=== PATIENT | male | born 1950 | race Caucasian/White ===

== ENCOUNTER → 2017-04-06 12:47 | Emergency (ER) | payer MEDICARE ==
[~2017-04-06 12:47] MED LIST: Insulin REGULAR(*) 1 UNITS UNIT IV PUSH ONE; Meclizine TAB* 12.5 MG PO ONE; NS 0.9% 1000 ML* 1,000 ML IV ONE
[2017-04-06 14:39] LABS: Albumin 4.3 g/dL (3.2-5.2); BUN/Creatinine Ratio 12.6 (8-20); Calcium 9.2 mg/dL (8.6-10.3); EGFR Non-African American 79.3 (>60); Globulin 2.8 g/dL (2-4); Potassium 4.1 mmol/L (3.5-5.0); Total Bilirubin 0.9 mg/dL (0.2-1.0); Total Protein 7.1 g/dL (6.4-8.9)
[2017-04-06 15:10] LABS: Hematocrit 44 % (42-52); Mean Corpuscular HGB Conc 34 g/dl (31-36); Mean Corpuscular Hemoglobin 30 pg (27-31); Mean Corpuscular Volume 88 fL (80-94); Mean Platelet Volume 9 um3 (7.4-10.4); Red Blood Count 4.99 10^6/ul (4.0-5.4); Red Cell Distribution Width 14 % (10.5-15); White Blood Count 7.9 10^3/ul (3.5-10.8)
--- NOTE | 2017-04-06 16:34 | RAD ---
INDICATION: Dizziness. COMPARISON: There are no prior studies available for comparison. TECHNIQUE: Contiguous axial sections of the brain were obtained from the skull base to the vertex without contrast. FINDINGS: The ventricles, cisterns and sulci are within normal limits. No significant focal abnormality or mass effect is seen. There is no evidence for hemorrhage. No significant focal osseous abnormality is seen. The visualized portion of the paranasal sinuses and mastoid air cells appear clear. IMPRESSION: NO EVIDENCE FOR GROSS ACUTE INFARCT, MASS EFFECT OR HEMORRHAGE.
[2017-04-06 17:45] LABS: Troponin I 0.01 ng/mL (<0.04)
--- NOTE | 2017-04-06 18:11 | ED ---
Jeff Hilton Aidan, scribed for Luis Carlos Quiroz MD on 04/06/17 at 1742 . Dizziness - HPI Summary HPI Summary: 66 y/o male presents to the ED with a complaint of acute, rrloeuom-yf-ozwyjt episodes of dizziness that began today. His first episode occurred when he woke up and leaned over to grab something. He had two other episodes [employer] that occurred when he was bending over. The dizziness is described as seeing the room spin. Additionally, he had an acute, moderate episode of bilateral upper extremity numbness today. Pt denies any nausea, vomiting, sore throat, CP, or palpitations. Hx of 4 fused vertebrae. - History Of Current Complaint Chief Complaint: EDDizziness Stated Complaint: DIZZINESS Time Seen by Provider: 04/06/17 15:27 Hx Obtained From: Patient Last Known Well Date: 04/05/17 Onset/Duration: Resolved - Sx began when the patient woke up (see HPI) he had 3 episodes total Timing: Minutes Severity Initially: Moderate Severity Currently: Mild Character: Room Spinning Aggravating Factor(s): Other - bending over causes his episodes of dizziness Alleviating Factor(s): Other - unknown Associated Signs And Symptoms: Positive: Other: - episode of bilateral upper extremity numbness - Allergies/Home Medications Allergies/Adverse Reactions: Allergies Allergy/AdvReac Type Severity Reaction Status Date / Time Clarithromycin Allergy Severe Anaphylatic Verified 03/25/14 13:04 [From Biaxin XL] Shock Home Medications: Home Medications Ergocalciferol CAP* [Drisdol CAP*] 50,000 unit PO MONTHLY 04/06/17 [History Confirmed 04/06/17] Fluticasone-Salmeterol 250-50* [Advair Diskus 250-50*] 1 puff INH BID 04/06/17 [ History Confirmed 04/06/17] glipiZIDE TAB.XL* [Glucotrol XL*] 5 mg PO DAILY 04/06/17 [History Confirmed ] PMH/Surg Hx/FS Hx/Imm Hx Endocrine/Hematology History: Reports: Hx Diabetes, Hx Thyroid Disease, Other Endocrine/Hematological Disorders - hypoactive thyroid (d/t suppression by lithium) Cardiovascular History: Reports: Other Cardiovascular Problems/Disorders - cariac cath x2 most recent 2009 Denies: Hx Hypertension, Hx Pacemaker/ICD, Hx Peripheral Vascular Disease Respiratory History: Reports: Hx Sleep Apnea Denies: Hx Asthma, Hx Chronic Obstructive Pulmonary Disease (COPD) GI History: Denies: Hx Ulcer History: Reports: Other Problems/Disorders - prostatectomy d/t prostate CA Denies: Hx Renal Disease Musculoskeletal History: Reports: Hx Arthritis, Hx Back Problems, Other Musculoskeletal History - fused vertebrae Sensory History: Reports: Hx Contacts or Glasses Denies: Hx Hearing Aid Opthamlomology History: Reports: Hx Contacts or Glasses Neurological History: Reports: Hx Headaches, Other Neuro Impairments/Disorders - spinal stenosis (C3,4,5,6 fused) Denies: Hx Seizures, Hx Transient Ischemic Attacks (TIA) Psychiatric History: Reports: Hx Anxiety, Hx Bipolar Disorder - well controlled with [place]/lexipro Denies: Hx Depression, Hx Panic Disorder - Cancer History Cancer Type, Location and Year: PROSTATE - PROSTECTOMY Hx Chemotherapy: No Hx Radiation Therapy: No - Surgical History Surgery Procedure, Year, and Place: Diskectomy, C6 vertebrectomy and fusion C5- C7 (2006) C4-C7 fusion-strut graft-(METAL IMPLANT IN CSP) decompression (2008) Radical prostatectomy for cancer (2007) Arthroscopic surgery left knee (2004) Trigger fingersurgery left index (2001) Left big toe remove damaged joint and fusion (2001) Nasal polyps removed. deviated septum fixed (2000) Hemorrhoidectomy (1989) Appendectomy (1975), CARDIAC ANGIO - NO STENTS Hx Anesthesia Reactions: No Infectious Disease History: No Infectious Disease History: Denies: Hx Clostridium Difficile, Hx Hepatitis, Hx Human Immunodeficiency Virus (HIV), Hx of Known/Suspected MRSA, Hx Shingles, Hx Tuberculosis, Hx Known/ Suspected VRE, Hx Known/Suspected VRSA, History Other Infectious Disease, Traveled Outside the [place] in Last 30 Days - Family History Known Family History: Positive: Hypertension - Social History Occupation: Retired Lives: With Family Alcohol Use: None Substance Use Type: Reports: None Smoking Status (MU): Never Smoked Tobacco Review of Systems Constitutional: Negative Eyes: Negative ENT: Negative Cardiovascular: Negative Respiratory: Negative Gastrointestinal: Negative Genitourinary: Negative Musculoskeletal: Negative Skin: Negative Neurological: Other - dizziness Positive: Numbness - episode of bilateral upper extremity numbness. Negative: Headache, Weakness, Paresthesia, Syncope, Slurred Speech Psychological: Normal All Other Systems Reviewed And Are Negative: Yes Physical Exam - Summary Physical Exam Summary: VITAL SIGNS: Reviewed. GENERAL: Patient is a well-developed and nourished (MALE OR FEMALE) who is lying comfortable in the stretcher. Patient is not in any acute respiratory distress. HEAD AND FACE: No signs of trauma. No ecchymosis, hematomas or skull depressions. No sinus tenderness. EYES: PERRLA, EOMI x 2, No injected conjunctiva, no nystagmus. EARS: Hearing grossly intact. Ear canals and tympanic membranes are within normal limits. MOUTH: Oropharynx within normal limits. NECK: Supple, trachea is midline, no adenopathy, no JVD, no carotid bruit, no c- spine tenderness, neck with full ROM. CHEST: Symmetric, no tenderness at palpation LUNGS: Clear to auscultation bilaterally. No wheezing or crackles. CVS: Regular rate and rhythm, S1 and S2 present, no murmurs or gallops appreciated. ABDOMEN: Soft, non-tender. No signs of distention. No rebound no guarding, and no masses palpated. Bowel sounds are normal. EXTREMITIES: FROM in all major joints, no edema, no cyanosis or clubbing. NEURO: Alert and oriented x 3. No acute neurological deficits. Speech is normal and follows commands. SKIN: Dry and warm Triage Information Reviewed: Yes Vital Signs On Initial Exam: Initial Vitals Temp Pulse Resp BP Pulse Ox 97.3 F 72 17 194/88 100 04/06/17 12:51 04/06/17 12:51 04/06/17 12:51 04/06/17 12:51 04/06/17 12:51 Vital Signs Reviewed: Yes - Harrison Coma Scale Coma Scale Total: 15 Diagnostics - Vital Signs Vital Signs Temp Pulse Resp BP Pulse Ox 04/06/17 15:26 97.7 F 71 16 151/87 99 04/06/17 15:24 76 100 04/06/17 15:22 151/87 04/06/17 13:55 97.8 F 63 16 166/65 100 04/06/17 12:51 97.3 F 72 17 194/88 100 - Laboratory Lab Results: Lab Results 04/06/17 04/06/17 Range/Units 14:11 14:44 WBC 7.9 (3.5-10.8) 10^3/ul RBC 4.99 (4.0-5.4) 10^6/ul Hgb 15.0 (14.0-18.0) g/dl Hct 44 (42-52) % MCV 88 (80-94) fL MCH 30 (27-31) pg MCHC 34 (31-36) g/dl RDW 14 (10.5-15) % Plt Count 167 (150-450) 10^3/ul MPV 9 (7.4-10.4) um3 Neut % (Auto) 70.6 (38-83) % Lymph % (Auto) 19.4 L (25-47) % [place] % (Auto) 5.7 (1-9) % Eos % (Auto) 3.5 (0-6) % Baso % (Auto) 0.8 (0-2) % Absolute Neuts (auto) 5.5 (1.5-7.7) 10^3/ul Absolute Lymphs (auto) 1.5 (1.0-4.8) 10^3/ul Absolute Monos (auto) 0.4 (0-0.8) 10^3/ul Absolute Eos (auto) 0.3 (0-0.6) 10^3/ul Absolute Basos (auto) 0.1 (0-0.2) 10^3/ul Absolute Nucleated RBC 0 10^3/ul Nucleated RBC % 0.1 Sodium 132 L (133-145) mmol/L Potassium 4.1 (3.5-5.0) mmol/L Chloride 100 L (101-111) mmol/L Carbon Dioxide 24 (22-32) mmol/L Anion Gap 8 (2-11) mmol/L BUN 12 (6-24) mg/dL Creatinine 0.95 (0.67-1.17) mg/dL Est GFR ( Amer) 102.0 (>60) Est GFR (Non-Af Amer) 79.3 (>60) BUN/Creatinine Ratio 12.6 (8-20) Glucose 234 H (70-100) mg/dL Calcium 9.2 (8.6-10.3) mg/dL Total Bilirubin 0.90 (0.2-1.0) mg/dL AST 52 H (13-39) U/L ALT 60 H (7-52) U/L Alkaline Phosphatase 60 (34-104) U/L Troponin I Pending Total Protein 7.1 (6.4-8.9) g/dL Albumin 4.3 (3.2-5.2) g/dL Globulin 2.8 (2-4) g/dL Albumin/Globulin Ratio 1.5 (1-3) Result Diagrams: 04/06/17 14:44 04/06/17 14:11 Lab Statement: Any lab studies that have been ordered have been reviewed, and results considered in the medical decision making process. - CT BRAIN CT CT Interpretation: No Acute Changes - IMPRESSION: NO EVIDENCE FOR GROSS ACUTE INFARCT, MASS EFFECT OR HEMORRHAGE. CT Interpretation Completed By: Radiologist Dizzy Course/Dx - Course Course Of Treatment: 66 y/o male presents to the ED with a complaint of acute, qizqmltp-eu-[id number] episodes of dizziness that began today. His first episode occurred when he woke up and leaned over to grab something. He had two other episodes [employer] that occurred when he was bending over. The dizziness is described as seeing the room spin. Additionally, he had an acute, moderate episode of bilateral upper extremity numbness today. Pt denies any nausea, vomiting, sore throat, CP, or palpitations. Hx of 4 fused vertebrae. . In the ED course an IV access was obtained. Patient was placed in a monitoring analyst. Patient was started with IV fluids. Labs within normal limits except for NA 132, Glucose 234, and increased LFTs. Troponin #1: EKG shows a NSR at w/o ST elevations. CXR impression: No acute pathology. Head CT impression: Negative for an acute intracranial pathology. In the ED course he was given Antivert. He reports improvement. He was ambulated and has a good steady walk w/o ataxia. I believe his symptoms are secondary to BPV. He will be discharged home with F/U of PMD. He will be given a prescription for Antivert. I discussed all the findings and test results with the patient. Patient was instructed to return to the emergency room immediately if any of the symptoms return or worsens. Patient understands and agrees. Plan of care was discussed with the patient and patient understands and agrees with the plan of care. All questions were answered at patient satisfaction. There were no further complaints or concerns. Patient is alert and oriented x 3. Patient vital signs are stable. Patient is to follow up with primary care physician in the next 2 to 3 days. Patient understands and agrees. - Diagnoses Differential Diagnosis/HQI/PQRI: CVA, Meniere's Disease, Seizure, Transient Ischemic Attack Provider Diagnoses: Vertigo Discharge - Discharge Plan Condition: Stable Disposition: HOME Prescriptions: Meclizine TAB* [Antivert 12.5 TAB*] 25 mg PO TID PRN #30 tab PRN Reason: Vertigo Patient Education Materials: Vertigo (ED) Referrals: Prashant Gabriel MD [Primary Care Provider] - The documentation as recorded by the Jeff naranjo Aidan accurately reflects the service I personally performed and the decisions made by Richie marin Walter, MD.
[2017-04-06 19:14] VITALS: BP 166/74
== END | disposition home or self-care (01) ==
LOC: ED 12:47
DX: R42 Dizziness and giddiness (principal)
CPT/HCPCS: 36415; 70450; 80053; 84484; 85025; A9270-GY

== ENCOUNTER 2017-05-17 11:57 | Emergency (ER) | payer MEDICARE ==
[2017-05-17 12:11] VITALS: BP 144/68
[2017-05-17] MEDS ORDERED: Famotidine TAB* 20 MG PO ONE (13:04)
[2017-05-17] MEDS ORDERED: diPHENhydraMINE PO* 50 MG PO ONE (13:04)
[2017-05-17] MEDS ORDERED: methylPREDNISolone 125 MG* 2 ML VIAL IM ONE (13:05)
[2017-05-17] MEDS ORDERED: Cephalexin CAP* 500 MG PO ONE (13:05)
--- NOTE | 2017-05-17 13:11 | UC ---
Skin Complaint HPI - HPI Summary HPI Summary: 67 male presents with complaints of redness, swelling and tenderness to left cheek and left forearm that began yesterday and worsened today upon waking. Patient states 1 week ago he was stung by a bee twice in the same areas, left forearm and left cheek. States he did not have any signs or symptoms of allergic reaction such as these after the bee sting. He did take Benadryl at the time of sting. Also took one benadryl last night. Patient has not had any medication today. No new meds, foods or soaps. Swelling has been increasing over the past couple of hours, states its pruritic, tender and warm. Denies drainage. Denies difficulty breathing, swollen tongue and chest pain. No trouble swallowing. No other complaints. PMHx DM, HTN. - History of Current Complaint Chief Complaint: UCAllergicReaction Time Seen by Provider: 05/17/17 12:46 Stated Complaint: BEE STINGS Hx Obtained From: Patient Onset/Duration: Sudden Onset, Lasting Hours, Still Present, Worse Since Skin Exposure Onset/Duration: Hours Ago - late last night, worsening this morning Timing: Constant Onset Severity: Worse Since: - last night Current Severity: Severe Pain Intensity: 4 Pain Scale Used: 0-10 Numeric Location: Face - left cheek, Other - left forearm, anterior Character: Swelling, Pruritus, Pain, Redness Aggravating: Nothing Alleviating: Nothing Associated Signs & Symptoms: Positive: Negative Related History: Possible Reaction to: Insect - bee - Allergy/Home Medications Allergies/Adverse Reactions: Allergies Allergy/AdvReac Type Severity Reaction Status Date / Time Clarithromycin Allergy Severe Anaphylatic Verified 03/25/14 13:04 [From Biaxin XL] Shock Review of Systems Constitutional: Negative Skin: Rash Respiratory: Negative Cardiovascular: Negative Gastrointestinal: Negative Musculoskeletal: Negative All Other Systems Reviewed And Are Negative: Yes PMH/Surg Hx/FS Hx/Imm Hx Endocrine History: Diabetes Cardiovascular History: Cardiac Disease, Hypertension - Surgical History Surgical History: Yes Surgery Procedure, Year, and Place: Diskectomy, C6 vertebrectomy and fusion C5- C7 (2006) C4-C7 fusion-strut graft-(METAL IMPLANT IN CSP) decompression (2008) Radical prostatectomy for cancer (2007) Arthroscopic surgery left knee (2004) Trigger fingersurgery left index (2001) Left big toe remove damaged joint and fusion (2001) Nasal polyps removed. deviated septum fixed (2000) Hemorrhoidectomy (1989) Appendectomy (1975), CARDIAC ANGIO - NO STENTS - Family History Known Family History: Positive: Hypertension - Social History Alcohol Use: None Substance Use Type: None Smoking Status (MU): Never Smoked Tobacco - Immunization History Most Recent Tetanus Shot: fall 2011 Physical Exam Triage Information Reviewed: Yes Appearance: Well-Appearing, No Pain Distress, Well-Nourished, Obese Vital Signs: Initial Vital Signs Temp 97.4 F 05/17/17 12:08 Pulse 67 05/17/17 12:08 Resp 18 05/17/17 12:08 BP 144/68 05/17/17 12:08 Pulse Ox 99 05/17/17 12:08 Vital Signs Reviewed: Yes Eyes: Positive: Conjunctiva Clear ENT: Positive: Normal ENT inspection, Hearing grossly normal, Pharynx normal - no swelling of pharynx or tongue noted, TMs normal. Negative: Trismus, Muffled/ hoarse voice Neck: Positive: Supple, Nontender, No Lymphadenopathy, Other: Respiratory: Positive: Chest non-tender, Lungs clear, Normal breath sounds, No respiratory distress, No accessory muscle use Cardiovascular: Positive: RRR, No Murmur, Pulses Normal Abdomen Description: Positive: Nontender, Soft Bowel Sounds: Positive: Present Musculoskeletal: Positive: Strength Intact, ROM Intact Neurological: Positive: Alert, Muscle Tone Normal Skin: Positive: rashes - erythema, edema, warmth, tenderness to left anterior forearm and left cheek spreading into jawline, significant swelling. non blanchable in areas, appears to be allergic reaction versus cellulitis/ both. no drainge, no FB no obvious bites/stings. rest of skin exam normal. no raised areas. no abscess Course/Dx - Course Course Of Treatment: given IM steroid, oral benadryl, pepcid and keflex. will continue same regimen at home. patient's condition did not worsen while in ED. no concern for for worsening condition or anaphylaxis at this time. local allergic reaction is odd as the sting was 1 week ago and symptoms began last night into this morning. aware of worsening signs and symptoms to watch out for. follow up. no additional imaging or labs appeared to be required at this time. Instructed to keep a close eye and check sugars frequently while taking steroid. also to have follow up appointment with PCP to also have check. discontinue after 3 days if symptoms improve and sugars are uncontrolled. - Differential Diagnoses - Skin Complaint Differential Diagnoses: Allergic Reaction, Angioedema, Cellulitis, Contact Dermatitis, Local Allergic Reaction, Urticaria, Other - Diagnoses Provider Diagnoses: local allergic reaction, cellulitis Discharge - Discharge Plan Condition: Stable Disposition: HOME Prescriptions: Cephalexin CAP* [Keflex CAP*] 500 mg PO TID #29 cap predniSONE TAB* [Deltasone TAB*] 20 mg PO DAILY #4 tab Patient Education Materials: Cellulitis (ED), General Allergic Reaction (ED) Referrals: Prashant Gabriel MD [Primary Care Provider] - Additional Instructions: Take prescribed medication as directed. Prednisone start tomorrow. take in the morning. you may take 2 days supply and if you have relief you may stop it. However if symptoms are persistent and sugars are in normal range you may take the full dose (5 day supply) given to you. Take antibiotic Keflex three times daily for atleast 7 days. If symptoms have completely resolved after 7 days you may discontinue if not, continue entire 10 day dose. Take Benadryl at bedtime 1 pill for the next 5 days. Apply cool compresses. Follow up with PCP. If symptoms worsen or do not improve, or new symptoms develop please seek medical attention immediately.
== END 2017-05-17 13:27 | disposition home or self-care (01) ==
LOC: UCEAST 11:57
DX: T63.441A Toxic effect of venom of bees, accidental (unintentional), initial encounter (principal); T78.40XA Allergy, unspecified, initial encounter; L03.90 Cellulitis, unspecified; Y92.9 Unspecified place or not applicable
CPT/HCPCS: 96372; 99212; A9270-GY; G0463; J2930

== ENCOUNTER 2019-06-26 08:28 | Day surgery (SDC) | payer MEDICARE ==
[~2019-06-26 08:28] MED LIST changes: +Acetaminophen TAB* 325 MG PO PRN; +Buffered Lidocaine 1% SYRIN* 1 ML/SYRINGE INTRADERM ONE; -Insulin REGULAR(*) 1 UNITS UNIT IV PUSH ONE; -Meclizine TAB* 12.5 MG PO ONE; -NS 0.9% 1000 ML* 1,000 ML IV ONE
[2019-06-26] MEDS ORDERED: fentaNYL* 50 MCG/ML 2 ML VIAL (100 MCG VIAL) ONE (09:45)
[2019-06-26] MEDS ORDERED: Midazolam* 1 MG/ML 2 ML VIAL (2 MG) ONE (09:45)
[2019-06-26 10:55] VITALS: BP 148/66
[2019-06-26] MEDS ORDERED: Phenylephrine OPHTH SOL 2.5%* 2 ML ONE (11:12)
[2019-06-26] MEDS ORDERED: Lidocaine 1% MPF ** 5 ML VIAL ONE (11:12)
[2019-06-26] MEDS ORDERED: Tropicamide 1% OPTH.SOL* BTL ONE (11:12)
[2019-06-26] MEDS ORDERED: Neomycin/Polymy/Dex OPHTH.OIN* 3.5 GM ONE (11:12)
[2019-06-26] MEDS ORDERED: Tetracaine 0.5% OPTH.SOL 4 ML* 1 DROP BTL ONE (11:12)
[2019-06-26] MEDS ORDERED: Cyclopentolate 1% OPTH.SOL* 2 ML BTL ONE (11:12)
[2019-06-26] MEDS ORDERED: Ketorolac 0.5% OPHTH (NF) 0.5 % 5 ML BTL ONE (11:12)
--- NOTE | 2019-06-26 11:26 | OP ---
OPERATIVE REPORT: DATE OF OPERATION: 06/26/19 [facility] DATE OF : 50 SURGEON: Dr. Timothy Ortega. TAKE OUT WAITER/WAITRESS: None. ANESTHESIA: Topical with intravenous sedation. PRE-OP DIAGNOSIS: Cataract with glaucoma, left eye. POST-OP DIAGNOSIS: Cataract with glaucoma, left eye. OPERATIVE PROCEDURE: Phacoemulsification and cataract extraction with posterior chamber intraocular lens implant and iStent implant, left eye. COMPLICATIONS: None. BLOOD LOSS: None. OPERATIVE FINDINGS: The patient was brought to the operating room and given intravenous sedation. A drop of tetracaine was placed in his left eye. The patient was prepped and draped in the usual sterile fashion for ophthalmic surgery and attention was directed to the left eye where a speculum was placed. A paracentesis was created at the 5 o'clock position and 0.1 cc of 1% preservative- free lidocaine was injected into the anterior chamber followed by DisCoVisc. The eye was digitally stabilized while a 2.75 mm keratome was used to create a triplanar clear corneal incision at the 3 o'clock position. A continuous curvilinear capsulorrhexis was created with a cystotome and Utrata forceps. BSS on a cannula was used to hydrodissect the lens from the capsule. Phacoemulsification was performed in a rmfayn-cey-ukwssic technique to create 4 fragments, which were removed. Residual cortical material was removed with irrigation and aspiration. The capsular bag was polished. DisCoVisc was used to inflate the capsular bag. An [id number] 18.5 diopter lens was inserted into the capsular bag. Supplemental DisCoVisc was placed into the anterior chamber and onto the surface of the cornea. The patient's head was rotated away from the surgeon and the microscope was rotated towards the surgeon. A gonioprism was placed on the surface of the eye. An iStent on its plastic shaper was placed into the anterior chamber. Under visualization, the iStent was placed into the nasal trabecular meshwork. The plastic shaper and the prism were removed. The patient's head and microscope were returned to a neutral position. Irrigation and aspiration were performed to remove viscoelastic from the eye. BSS on a cannula was used to hydrate the corneal stroma and seal the wound. At the end of the case, the pupil was round and the lens was centered and stable. The eye pressure appeared normal. The iStent was in good position. The wound was watertight. The speculum was removed and topical Maxitrol ointment was placed on the surface of the eye. The eye was closed, patched and shielded and the patient was sent to the recovery room in stable condition with postoperative instructions and a follow-up appointment given. [id number]/CPS #: [id number] MTDD
== END 2019-06-26 10:47 | disposition home or self-care (01) ==
LOC: OREAST 08:28
PROVIDERS: ATTEND Ophthalmology
DX: H25.12 Age-related nuclear cataract, left eye (principal); H40.10X1 Unspecified open-angle glaucoma, mild stage; E11.9 Type 2 diabetes mellitus without complications; Z79.84 Long term (current) use of oral hypoglycemic drugs; I10 Essential (primary) hypertension; E78.00 Pure hypercholesterolemia, unspecified; G47.33 Obstructive sleep apnea (adult) (pediatric)
CPT/HCPCS: A9270-GY; C1783; J2250; J3010; V2632